=== PATIENT | female | born 1990 | race Two or more races ===

== ENCOUNTER 2020-10-28 21:25 | Emergency (ER) | payer SELFPAY ==
[~2020-10-28] VITALS: Ht 167.6 cm; Wt 81.6 kg
[2020-10-28 21:26] VITALS: BP 127/81
--- NOTE | 2020-10-28 21:30 | NUR ---
ED Nurse Note: Pt brought in by EMS with IV placed. AAO x4. Pt reports she thought she was smoking meth, but began to feel weird afterward. EMS reports she smoked fentanyl. Pt covered in vomit upon arrival to ED and cleaned up by tech. Pt c/o headache. Pt is very diaphoretic. Police came to ED to speak with pt.
--- NOTE | 2020-10-28 21:49 | Emergency Room Report ---
History of Present Illness General Chief Complaint: Overdose Source: Patient (Tramaine Marin MD) Present Illness HPI 30-year-old female presents status post overdose. Brought in by EMS from home. Snorted a powder tonight. Did not know what it was. People at the house stated it was fentanyl. Patient was given Narcan in the field. Is now alert and oriented. Feels nauseous. Has vomited. Denies SI or HI. No other aggravating relieving factors. Denies any other associated symptoms (Tramaine Marin MD) Allergies: Coded Allergies: No Known Allergies (Unverified , 10/28/20) COVID-19 Screening Contact w/high risk pt: No Experienced COVID-19 symptoms?: No COVID-19 Testing performed ORGANIZATIONAL DEVELOPMENT CONSULTANT: No (Tramaine Marin MD) Patient History Past Medical History: none Past Surgical History: none Pertinent Family History: none Social History: Denies: smoking, alcohol use, drug use Now: No Immunizations: UTD Reviewed Nursing Documentation: PMH: Agreed; PSxH: Agreed (Tramaine Marin MD) Nursing Documentation-PMH Past Medical History: No Stated History (Tramaine Marin MD) Review of Systems All Other Systems: negative except mentioned in HPI (Tramaine Marin MD) Physical Exam Vital Signs Date Time Temp Pulse Resp B/P (MAP) Pulse Ox O2 Delivery O2 Flow Rate FiO2 10/28/20 21:17 98.4 104 16 127/81 (96) 98 Room Air Sp02 EP Interpretation: reviewed, normal General Appearance: no apparent distress, alert, GCS 15, non-toxic Head: normocephalic, atraumatic Eyes: bilateral eye normal inspection, bilateral eye PERRL ENT: hearing grossly normal, normal pharynx, no angioedema, normal voice Neck: full range of motion, supple/symm/no masses Respiratory: chest non-tender, lungs clear, normal breath sounds, speaking full sentences Cardiovascular #1: regular rate, rhythm, no edema Cardiovascular #2: 2+ carotid (R), 2+ carotid (L), 2+ radial (R), 2+ radial (L), 2+ dorsalis pedis (R), 2+ dorsalis pedis (L) Gastrointestinal: normal bowel sounds, non tender, soft, non-distended, no guarding, no rebound Rectal: deferred Genitourinary: normal inspection, no CVA tenderness Musculoskeletal: back normal, normal range of motion, gait/station normal, non- tender Neurologic: alert, motor strength/tone normal, oriented x3, sensory intact, responsive, speech normal Psychiatric: judgement/insight normal, memory normal, mood/affect normal, no suicidal/homicidal ideation Reflexes: 3+ bicep (R), 3+ bicep (L), 3+ tricep (R), 3+ tricep (L), 3+ knee (R), 3+ knee (L) Lymphatic: no adenopathy (Tramaine Marin MD) Medical Decision Making Diagnostic Impression: Primary Impression: Drug overdose ER Course Patient signed out to me by previous physician. She is remained hemodynamically stable and neurovascular intact throughout the rest of her stay in the emergency department. She was observed for a total of over 2 hours status post Narcan administration. She has been awake and alert during that time. She is clinically sober. She was given a prescription for: And information on drug rehab. Discharged in stable condition with family. (Atif Wells M.D.) Last Vital Signs Date Time Temp Pulse Resp B/P (MAP) Pulse Ox O2 Delivery O2 Flow Rate FiO2 10/28/20 21:26 104 16 Room Air 10/28/20 21:26 98.4 127/81 98 (Tramaine Marin MD) Scripts Naloxone HCl (Narcan) 4 Mg [place] 4 MG NS PRN, #2 SPRAY Prov: Atif Wells M.D. 10/28/20 Tramaine Marin MD Oct 28, 2020 21:49 Atif Wells M.D. Oct 28, 2020 22:59
--- NOTE | 2020-10-28 22:54 | NUR ---
Pt is resting with eyes closed, pt is in no distress. No complaints at this time.
[2020-10-28 22:58] VITALS: BP 108/84
[2020-10-28] MEDS ORDERED: NARCAN4 MG NS (22:58)
--- NOTE | 2020-10-28 23:34 | NUR ---
ER DISCHARGE NOTE: Patient is cleared to be discharged per ERMD, pt is aao x4, on room air, with stable vital signs. pt was given d/c instructions, pt was able to verbalize understanding, pt's id band and iv site removed without complications. pt is able to ambulate with steady gait. pt took all belongings.
== END 2020-10-28 23:33 | disposition home or self-care (01) ==
LOC: EDBD 21:25 → EMR 21:30
DX: T40.411A Poisoning by fentanyl or fentanyl analogs, accidental (unintentional), initial encounter (principal); R11.2 Nausea with vomiting, unspecified; Y92.9 Unspecified place or not applicable
CPT/HCPCS: 96361; 96374; 96375; 96376; 99284; J2405; J7030; S0028